=== PATIENT | male | born 1970 | race Caucasian/White ===

== ENCOUNTER 2018-10-25 11:23 | Inpatient (IN) | payer MEDICAID, OTHER ==
[2018-10-25] VITALS (13 sets, daily range): BP systolic 105–152
[~2018-10-25] VITALS: Ht 172.7 cm; Wt 85.7 kg
--- NOTE | 2018-10-25 11:25 | NUR ---
Patient to ER bed 2 to gown for evaluation. Side rails up. RESUMED CARE OF PATIENT.
--- NOTE | 2018-10-25 11:35 | NUR ---
PATIENT BIB AMBULANCE FOR LEFT SIDED CHEST PAIN x1.5 HOURS WHILE AT THE COURT HOUSE. PT A&Ox4. +DIZZINESS. CHEST PAIN PRESSURE LIKE AND SHARP. PAIN = 10/10. DR. HEBERT AT BEDSIDE AND AWARE. NEW ORDERS NOTED AND TO BE CARRIED OUT. PT STATES HAVING SHORTNESS OF BREATH AT ONSET OF CHEST PAIN. SPEAKING FULL SENTENCES AT THIS TIME. PT PLACED ON O2 VIA NC @ 2L/MIN. SIDE RAILS UP. WILL CONTINUE TO MONITOR.
--- NOTE | 2018-10-25 11:35 | NUR ---
MD ELLE HEBERT at bedside examining patient.
[2018-10-25 11:49] LABS: BASOPHILS # (AUTO) 0.1 K/uL (0.0-0.2); EOSINOPHILS # (AUTO) 0.2 K/uL (0.0-0.4); EOSINOPHILS % (AUTO) 2.6 % (0.0-4.0); HEMATOCRIT 44.7 % (36-54); HEMOGLOBIN 14.3 g/dL (14.0-18.0); LYMPHOCYTES # (AUTO) 0.9 K/uL (1.0-5.5); LYMPHOCYTES % (AUTO) 11.6 % (20.5-51.5); MEAN CORPUSCULAR HEMOGLOBIN 32 pg (27-31); MEAN CORPUSCULAR HGB CONC 32 % (32-36); MEAN CORPUSCULAR VOLUME 100 fL (79.0-98.0); MONOCYTES # (AUTO) 0.5 K/uL (0.0-1.0); MONOCYTES % (AUTO) 6.9 % (1.7-9.3); NEUTROPHILS # (AUTO) 5.9 K/uL (1.8-7.7); NEUTROPHILS % (AUTO) 77.9 % (40.0-70.0); PLATELET COUNT (AUTO) 218 K/uL (130-430); RED BLOOD CELL COUNT(AUTO) 4.48 MIL/uL (4.2-6.2); RED CELL DISTRIBUTION WIDTH 14.9 % (9.0-15.0); WHITE BLOOD COUNT (AUTO) 7.6 K/uL (4.8-10.8)
[2018-10-25] MEDS ORDERED: CALCIUM GLUCONATE 1 GM/10 ML VIAL IVP ONE (12:00)
[2018-10-25] MEDS ORDERED: ATROPINE SULFATE 1 MG/10 ML SYRINGE IVP ONE ×3 (12:00→13:15)
[2018-10-25 12:19] LABS: CALCIUM 8.8 mg/dL (8.4-11.0)
[2018-10-25 12:24] LABS: POTASSIUM 6.9 mmol/L (3.5-5.1)
[2018-10-25 12:26] LABS: ALBUMIN 3.5 g/dL (3.4-4.8); TOTAL BILIRUBIN 0.5 mg/dL (0.0-1.0)
[2018-10-25 12:27] LABS: CREATININE 19.78 mg/dL (0.55-1.30)
[2018-10-25] MEDS ORDERED: SODIUM BICARBONATE 8.4% JECT 50 MEQ/50 ML SYRINGE IVP ONE ×2 (12:30)
--- NOTE | 2018-10-25 13:22 | NUR ---
Orders received from Dr. Bautista, orders entered by RN. Called ICU for bed assignment.
[2018-10-25] MEDS ORDERED: MUPIROCIN 2% TOPICAL OINTMENT 22 GM NS PRN (13:30)
[2018-10-25] MEDS ORDERED: MAGNESIUM SULFATE 50 ML IV PRN (13:30)
[2018-10-25] MEDS ORDERED: ONDANSETRON HCL 4 MG/2 ML VIAL IVP PRN (13:30)
[2018-10-25] MEDS ORDERED: ACETAMINOPHEN 325 MG TABLET PO PRN (13:30)
[2018-10-25] MEDS ORDERED: POTASSIUM CHLORIDE 20 MEQ TAB.PRT.SR PO PRN (13:30)
[2018-10-25] MEDS ORDERED: DOCUSATE SODIUM 100 MG CAPSULE PO PRN (13:30)
[2018-10-25] MEDS ORDERED: LORazepam 2 MG/ML VIAL IVP PRN (13:30)
[2018-10-25] MEDS ORDERED: ZOLPIDEM TARTRATE 5 MG TABLET PO PRN (13:30)
[2018-10-25] MEDS ORDERED: MORPHINE 4 MG/ML INJ. SYRINGE IVP PRN ×2 (13:30)
--- NOTE | 2018-10-25 13:50 | NUR ---
IV access placed by EMS, attempted 2nd IV site, unable to obtain, will endorse.
--- NOTE | 2018-10-25 14:00 | NUR ---
Patient will be admitted to care of . Admitted to ICU unit. Will go to room ICU6. Belongings list completed. Summary report printed. Report will be given at bedside. KIMANI Melvin received bedside report.
--- NOTE | 2018-10-25 14:15 | NUR ---
Received pt from ER to ICU bed 6 via gurney. Pt alert and oriented. HR 35-42 upon arrival. Pt has a left arm AV shunt and an 18 IV to left hand from paramedics. Pt denies dizzyness. BP stable. 02 2L NC in use Sats 99%. Left upper arm with AV shunt with a good thrill and audible bruit. Lungs very diminished in bases. Pt denies SOB at this time. ABD soft with bowels sounds. No pedal edema. Socks on.Call soliz in place and will continue to monitor pt.
--- NOTE | 2018-10-25 14:35 | NUR ---
20g IV started to right AC. Flushes well without pain or swelling.
[2018-10-25 16:23] LABS: PROTHROMBIN TIME 9.9 SECS (9.5-12.5)
--- NOTE | 2018-10-25 16:25 | NUR ---
Pt c/o SOB. RR 28/min. Sats 97%. Dialysis nurse here. Spoke with Dr. Arita and informed him of HR 29 on occasion, but mostly 30s and the rest of the VS. Orders left. Addendum: 10/25/18 at 1655 by Jaquelin Cyr RN Pts monitor azael felder at times, 2nd degree.
--- NOTE | 2018-10-25 16:30 | NUR ---
Atropine 0.5 mg IVP given for HR 32. Dialysis just starting.
[2018-10-25] MEDS ORDERED: ATROPINE SULFATE 0.5 MG/5 ML SYRINGE IVP PRN (16:45)
[2018-10-25] MEDS ORDERED: SODIUM POLYSTYRENE SULFONATE 15 GM/60 ML UDBTL PO ONE (16:45)
--- NOTE | 2018-10-25 16:45 | NUR ---
Not much difference in HR after atropine given. Tolerating dialysis. "Pt ststes he feels better already, I can feel it already."
--- NOTE | 2018-10-25 17:50 | NUR ---
Monitor shows HR 70's and SR. Pt comfortable in bed and states he feels much better. Eating dinner and has a good appetite.
[2018-10-25] MEDS ORDERED: FOLI0.8T42 PO (18:38)
[2018-10-25] MEDS ORDERED: NEPH PO (18:38)
[2018-10-25] MEDS ORDERED: PROXL60 PO (18:38)
[2018-10-25] MEDS ORDERED: METO-442 PO (18:38)
[2018-10-25] MEDS ORDERED: NOR10 PO (18:38)
[2018-10-25] MEDS ORDERED: OMEP10SU2 PO (18:38)
[2018-10-25] MEDS ORDERED: ASA81 PO (18:38)
[2018-10-25] MEDS ORDERED: CAT.2 PO (18:38)
[2018-10-25] MEDS ORDERED: DEXL60CA4 PO (18:38)
--- NOTE | 2018-10-25 19:25 | NUR ---
PM SHIFT ASSESSMENT Pt is alert and oriented. SR noted on monitor. SPO2 via NC @ 2L, RR even and unlabored. Skin intact. Pt is anuric. Safety precautions in place, call light within reach. Will continue to monitor.
--- NOTE | 2018-10-25 19:30 | NUR ---
Dialysis completed and pt tolerated it well. HR SR rate 66. VSS.
--- NOTE | 2018-10-25 19:32 | NUR ---
Report given to oncoming shift.
--- NOTE | 2018-10-25 19:50 | NUR ---
CHG bath given. Pt tolerated care well.
[2018-10-25] MEDS: HEPARIN SODIUM,PORCINE 5000 UNITS/ML VIAL SUBCUT SCH (20:49)
[2018-10-26] VITALS (15 sets, daily range): BP systolic 126–172
[2018-10-26 06:42] LABS: CALCIUM 8.8 mg/dL (8.4-11.0); POTASSIUM 4.5 mmol/L (3.5-5.1)
[2018-10-26 06:52] LABS: CREATININE 15.04 mg/dL (0.55-1.30)
[2018-10-26 06:54] LABS: BASOPHILS % (AUTO) 0.3 % (0.0-2.0); EOSINOPHILS # (AUTO) 0.2 K/uL (0.0-0.4); EOSINOPHILS % (AUTO) 3.7 % (0.0-4.0); HEMATOCRIT 45.1 % (36-54); HEMOGLOBIN 14.7 g/dL (14.0-18.0); LYMPHOCYTES # (AUTO) 0.8 K/uL (1.0-5.5); LYMPHOCYTES % (AUTO) 11.9 % (20.5-51.5); MEAN CORPUSCULAR HEMOGLOBIN 32 pg (27-31); MEAN CORPUSCULAR HGB CONC 33 % (32-36); MEAN CORPUSCULAR VOLUME 99 fL (79.0-98.0); MONOCYTES # (AUTO) 0.4 K/uL (0.0-1.0); NEUTROPHILS % (AUTO) 77.1 % (40.0-70.0); PLATELET COUNT (AUTO) 175 K/uL (130-430); RED BLOOD CELL COUNT(AUTO) 4.55 MIL/uL (4.2-6.2); RED CELL DISTRIBUTION WIDTH 14.7 % (9.0-15.0); WHITE BLOOD COUNT (AUTO) 6.4 K/uL (4.8-10.8)
--- NOTE | 2018-10-26 07:20 | NUR ---
ENDORSEMENT Pt care endorsed to KIMANI Berman at bedside using nursing SBAR.
--- NOTE | 2018-10-26 07:21 | NUR ---
RN Opening Note SBAR report received from endorsing nurse at bedside. Pt educated on unit safety and demonstrated use of call light. Bed in lowest position. Call light within reach. See VS flowsheet.
[2018-10-26] MEDS: HEPARIN SODIUM,PORCINE 5000 UNITS/ML VIAL SUBCUT SCH ×2 (08:23→20:50)
--- NOTE | 2018-10-26 09:30 | NUR ---
DOWNGRADE TO TELEMETRY DR. JIMENEZ AT BEDSIDE. ORDER RECEIVED TO TRANSFER TO TELEMETRY. CONTINUING CARE IN ICU-6 UNTIL TELEMETRY NURSE BECOMES AVAILABLE
--- NOTE | 2018-10-26 10:36 | NUR ---
Nutrition Update Magen Scale 16 noted. Pt admitted for symptomatic bradycardiac. Diet: renal BMI: 27.7 kg/m2 RD to follow per nutrition care standards.
--- NOTE | 2018-10-26 10:40 | NUR ---
opening note patient is resting in bed, A&Ox4, assessment completed, educated administration dean light system and plan of care, patient verbalized understanding, no other needs at this time, patient refused bed alarm even after providing education on the benefits of it, bed at the lowest position, two side rails up, call light within reach, fall and aspiration precautions in place, limb alert band on.
[2018-10-26] MEDS: ASPIRIN 81 MG TAB.CHEW PO SCH (11:29)
[2018-10-26] MEDS: NEPHROVITE, (FOLIC ACID/VITAMIN B COMP W-C 1 TAB) PO SCH (11:30)
[2018-10-26] MEDS: cloNIDine HCL 0.1 MG TABLET PO SCH ×2 (11:30→20:48)
[2018-10-26] MEDS: amLODIPine BESYLATE 10 MG TABLET PO SCH (11:30)
--- NOTE | 2018-10-26 11:30 | NUR ---
Medication patient is resting in bed, medications were administered late because patient was transferred to unit after the scheduled time and orders and verification did not happen until after his transfer, educated on medication uses and side effects, patient verbalized understanding and tolerated well, no other needs at this time, patient refused bed alarm even after providing education on the benefits of it, bed at the lowest position, two side rails up, call light within reach, fall and aspiration precautions in place, limb alert band on.
--- NOTE | 2018-10-26 12:40 | NUR ---
rounds vital signs completed, blood pressure was 172/102, will continue to monitor, patient is resting in bed, no other needs at this time, patient refused bed alarm even after providing education on the benefits of it, bed at the lowest position, two side rails up, call light within reach, fall and aspiration precautions in place, limb alert band on.
--- NOTE | 2018-10-26 13:00 | NUR ---
BP follow up blood pressure was 134/72, will continue to monitor, patient is resting in bed, no other needs at this time, patient refused bed alarm even after providing education on the benefits of it, bed at the lowest position, two side rails up, call light within reach, fall and aspiration precautions in place, limb alert band on.
--- NOTE | 2018-10-26 14:30 | NUR ---
ROUNDS patient is resting in bed, eyes closed breathing nonlabored, no other needs at this time, patient refused bed alarm even after providing education on the benefits of it, bed at the lowest position, two side rails up, call light within reach, fall and aspiration precautions in place, limb alert band on.
--- NOTE | 2018-10-26 16:30 | NUR ---
rounds patient is resting in bed, talking on the phone, vital signs done, no other needs at this time, patient refused bed alarm even after providing education on the benefits of it, bed at the lowest position, two side rails up, call light within reach, fall and aspiration precautions in place, limb alert band on.
--- NOTE | 2018-10-26 18:40 | NUR ---
closing note walked with patient in [place], assisted back to bed, no other needs at this time, will endorse report to noc shift nurse, patient refused bed alarm, bed in lowest position, two side rails up, call light within reach, fall and aspiration precautions in place, limb alert band on.
--- NOTE | 2018-10-26 19:25 | NUR ---
OPENING NOTE Patient resting in the bed comfortable. No acute distress. Respiration even and unlabored. AAO x 4. Denied of pain. Skin warm and dry to touch. SL intact to RAC, no redness, no swelling, patent. AV shunt intact to SHRUTHI with thrill/bruit present. No bleeding, no swelling noted. Discussed the safety measure maintained. Bed locked in low position, side rails up. Call light within reached. Refused bed alarm, risk and benefit explained, verbally understanding. Will continue to monitor.
--- NOTE | 2018-10-26 21:35 | NUR ---
AMBULATED IN [address] IN STEADY GAIT.
--- NOTE | 2018-10-26 23:05 | NUR ---
ROUND Patient resting in the bed with eyes closed. No acute distress. Respiration even and unlabored. Safety measure maintained. Bed locked in low position, side rails up. Call light within reached. Continue to monitor.
--- NOTE | 2018-10-27 01:22 | NUR ---
ROUND Patient resting in the bed with eyes closed. No acute distress. Safety measure maintained. Bed locked in low position, side rails up. Call light within reached. Continue to monitor.
[2018-10-27 01:36] VITALS: BP_SYST 147
--- NOTE | 2018-10-27 03:00 | NUR ---
ROUND Patient resting in the bed with eyes closed. No acute distress. Skin warm and dry to touch. SL intact. Safety measure maintained. Bed locked in low position, side rails up. Call light within reached. Continue to monitor.
--- NOTE | 2018-10-27 04:50 | NUR ---
ROUND Patient resting in the bed with eyes closed. No acute distress. Respiration even and unlabored. Safety measure maintained. Call light within reached. Bed locked in low position, side rails up. Continue to monitor.
--- NOTE | 2018-10-27 06:55 | NUR ---
CLOSING NOTE Patient resting in the bed and watching TV. No acute distress. Respiration even and unlabored. Denied of pain. Skin warm and dry to touch. SL intact to RAC, no redness, no swelling, patent. AV shunt intact to SHRUTHI with thrill/bruit present. No bleeding, no swelling noted. All needs met. Hourly rounding during shift. Safety measure maintained. Bed locked in low position, side rails up. Call light within reached. Refused bed alarm, risk and benefit explained, verbally understanding. Will endorse to morning shift nurse.
[2018-10-27 07:43] LABS: BASOPHILS % (AUTO) 0.3 % (0.0-2.0); EOSINOPHILS # (AUTO) 0.2 K/uL (0.0-0.4); HEMATOCRIT 43.9 % (36-54); HEMOGLOBIN 14.1 g/dL (14.0-18.0); LYMPHOCYTES % (AUTO) 18.8 % (20.5-51.5); MEAN CORPUSCULAR HEMOGLOBIN 32 pg (27-31); MEAN CORPUSCULAR HGB CONC 32 % (32-36); MEAN CORPUSCULAR VOLUME 99 fL (79.0-98.0); MONOCYTES # (AUTO) 0.5 K/uL (0.0-1.0); MONOCYTES % (AUTO) 9.2 % (1.7-9.3); NEUTROPHILS # (AUTO) 3.7 K/uL (1.8-7.7); NEUTROPHILS % (AUTO) 67.7 % (40.0-70.0); PLATELET COUNT (AUTO) 162 K/uL (130-430); RED BLOOD CELL COUNT(AUTO) 4.46 MIL/uL (4.2-6.2); WHITE BLOOD COUNT (AUTO) 5.4 K/uL (4.8-10.8)
--- NOTE | 2018-10-27 08:00 | NUR ---
AM rounds patient resting in bed, a/ox4, denies pain, assessment complete, educated on plan of care, safety and call light system, he verbalized understanding, call light within reach, fall and aspiration precautions in place.
[2018-10-27] MEDS: cloNIDine HCL 0.1 MG TABLET PO SCH ×3 (08:08→21:04)
[2018-10-27] MEDS: ASPIRIN 81 MG TAB.CHEW PO SCH (08:08)
[2018-10-27] MEDS: NEPHROVITE, (FOLIC ACID/VITAMIN B COMP W-C 1 TAB) PO SCH (08:08)
[2018-10-27] MEDS: amLODIPine BESYLATE 10 MG TABLET PO SCH (08:09)
[2018-10-27] MEDS: HEPARIN SODIUM,PORCINE 5000 UNITS/ML VIAL SUBCUT SCH ×2 (08:10→21:06)
--- NOTE | 2018-10-27 08:10 | NUR ---
Medications patient resting in bed, awake, denies pain, educated on morning medications uses and potential side effects, he verbalized understanding and tolerated well, no other needs at this time, bed in lowest position, two side rails up, call light within reach, fall and aspiration precautions in place, continuing to monitor
[2018-10-27 08:12] VITALS: BP_SYST 176
[2018-10-27 08:12] LABS: CALCIUM 8.4 mg/dL (8.4-11.0); POTASSIUM 5.2 mmol/L (3.5-5.1)
[2018-10-27 08:20] LABS: CREATININE 17.81 mg/dL (0.55-1.30)
--- NOTE | 2018-10-27 08:20 | NUR ---
Hemodialysis nurse at the bedside at this time, patient is tolerating well.
[2018-10-27 09:16] VITALS: BP_SYST 176
[2018-10-27] MEDS: hydrALAZINE HCL 10 MG TABLET PO ONE ×2 (10:00→12:29)
--- NOTE | 2018-10-27 11:59 | NUR ---
Hemodialysis/BP med HD complete at this time, 3L off, patient BP improved will not administer one time dose of hydralazine, will re-check BP and administer 1400 dose if indicated, patient denies pain, in stable condition, continuing to monitor, no other needs at this time, bed in lowest position, two side rails up, call light within reach, fall and aspiration precautions in place. Addendum: 10/27/18 at [address] RN Administered one time dose for BP med per MD orders, current HR 71 BP 162/101, continuing to monitor.
[2018-10-27 12:14] VITALS: BP_SYST 162
--- NOTE | 2018-10-27 12:57 | NUR ---
Patient request to go to [facility] to see his grandson who is too young to visit inside the hospital, walked with the patient to the [facility] steady gait, will continue to monitor the patient. Addendum: 10/27/18 at [address] RN Patient back to unit, stable condition.
[2018-10-27] MEDS ORDERED: hydrALAZINE HCL 10 MG TABLET PO SCH (14:00)
--- NOTE | 2018-10-27 14:09 | NUR ---
RN Rounds patient ambulating on the unit, steady gait, stable condition, continuing to monitor.
--- NOTE | 2018-10-27 15:02 | NUR ---
Dietitian Recommendations * Recommend renal, 100 gm protein diet LP, RD Please refer to Nutrition Assessment for details.
[2018-10-27 15:32] VITALS: BP_SYST 128
[2018-10-27] MEDS: hydrALAZINE HCL 10 MG TABLET PO SCH ×2 (15:51→22:47)
--- NOTE | 2018-10-27 15:55 | NUR ---
RN rounds/BP meds patient resting in bed, awake, denies pain, educated on medications, uses and potential side effects, HR 81 BP 157/110 at this time, patient tolerated well, provided with linen pants per request, no other needs at this time, bed in lowest position, two side rails up, call light within reach, fall and aspiration precautions in place.
--- NOTE | 2018-10-27 17:30 | NUR ---
RN rounds patient out of bed, ambulating around his room and in the hallway, steady gait, in stable condition, continuing to monitor.
--- NOTE | 2018-10-27 18:53 | NUR ---
Dr. Carter rounds assessed patient at bedside, will follow up with any new orders. Addendum: 10/27/18 at [address] RN WRONG PATIENT *
--- NOTE | 2018-10-27 18:53 | NUR ---
Closing note patient resting in bed, awake, denies pain, stable condition, all needs met, will endorse report to NOC shift nurse, bed in lowest position, two side rails up, call light within reach, fall and aspiration precautions in place.
--- NOTE | 2018-10-27 19:15 | NUR ---
OPENING NOTES RECEIVED PATIENT IN BED AAO X4. DENIES ANY PAIN. BREATHING UNLABORED ON ROOM AIR. PLAN OF CARE REVIEWED WITH PATIENT. CALL LIGHT WITHIN REACH. BED IN LOWEST LOCKED POSITION.
[2018-10-27 20:50] VITALS: BP_SYST 149
--- NOTE | 2018-10-27 21:06 | NUR ---
MED PASS DUE MEDICATIONS GIVEN AND TOLERATED. DENIES PAIN/DISCOMFORT AT THIS TIME. HS SNACK PROVIDED.
--- NOTE | 2018-10-27 22:47 | NUR ---
BP MED DUE BLOOD PRESSURE MEDICATION GIVEN. VITAL SIGNS STABLE. CALL LIGHT WITH IN REACH.
[2018-10-28] VITALS: BP_SYST 125
--- NOTE | 2018-10-28 01:45 | NUR ---
ROUNDS PATIENT RESTING IN BED. BREATHING UNLABORED ON ROOM AIR. CALL LIGHT WITHIN REACH.
--- NOTE | 2018-10-28 03:45 | NUR ---
ROUNDS PATIENT RESTING IN BED. NO DISTRESS NOTED. CALL LIGHT WITHIN REACH.
[2018-10-28] MEDS: hydrALAZINE HCL 10 MG TABLET PO SCH ×2 (06:01→13:08)
--- NOTE | 2018-10-28 06:01 | NUR ---
BP MEDS DUE BP MEDICATION GIVEN. VITAL SIGNS STABLE. DENIES PAIN. NO DISTRESS NOTED.
--- NOTE | 2018-10-28 07:01 | NUR ---
CLOSING NOTES PATIENT RESTING IN BED. BREATHING UNLABORED. NO CHANGE OF CONDITION DURING SHIFT. NEEDS ATTENDED. CALL LIGHT WITH IN REACH. SIDE RAILS UP X2. BED IN LOWEST LOCKED POSITION.
[2018-10-28 07:16] LABS: BASOPHILS % (AUTO) 0.5 % (0.0-2.0); EOSINOPHILS # (AUTO) 0.2 K/uL (0.0-0.4); EOSINOPHILS % (AUTO) 3.4 % (0.0-4.0); HEMATOCRIT 47.4 % (36-54); LYMPHOCYTES % (AUTO) 19.3 % (20.5-51.5); MEAN CORPUSCULAR HEMOGLOBIN 33 pg (27-31); MEAN CORPUSCULAR HGB CONC 34 % (32-36); MEAN CORPUSCULAR VOLUME 98 fL (79.0-98.0); MONOCYTES # (AUTO) 0.4 K/uL (0.0-1.0); MONOCYTES % (AUTO) 8.3 % (1.7-9.3); NEUTROPHILS # (AUTO) 3.7 K/uL (1.8-7.7); NEUTROPHILS % (AUTO) 68.5 % (40.0-70.0); PLATELET COUNT (AUTO) 181 K/uL (130-430); RED BLOOD CELL COUNT(AUTO) 4.83 MIL/uL (4.2-6.2); RED CELL DISTRIBUTION WIDTH 14.6 % (9.0-15.0); WHITE BLOOD COUNT (AUTO) 5.3 K/uL (4.8-10.8)
[2018-10-28 07:26] LABS: CALCIUM 8.6 mg/dL (8.4-11.0); POTASSIUM 5.1 mmol/L (3.5-5.1)
[2018-10-28 07:29] LABS: CREATININE 15.49 mg/dL (0.55-1.30)
--- NOTE | 2018-10-28 07:30 | NUR ---
opening note patient is resting in bed, A&Ox4, assessment completed, educated telecommunications administrator light system and plan of care, patient verbalized understanding, no other needs at this time, patient refused bed alarm even after providing education on the benefits of it, bed at the lowest position, two side rails up, call light within reach, fall and aspiration precautions in place, limb alert band on.
[2018-10-28 08:05] VITALS: BP_SYST 140
[2018-10-28] MEDS: NEPHROVITE, (FOLIC ACID/VITAMIN B COMP W-C 1 TAB) PO SCH (08:08)
[2018-10-28] MEDS: ASPIRIN 81 MG TAB.CHEW PO SCH (08:08)
--- NOTE | 2018-10-28 08:08 | NUR ---
Medication patient is resting in bed, patient denies any pain, patient is eating breakfast, educated on medication uses and side effects, patient verbalized understanding and tolerated well, no other needs at this time, patient refused bed alarm even after providing education on the benefits of it, bed at the lowest position, two side rails up, call light within reach, fall and aspiration precautions in place, limb alert band on.
[2018-10-28] MEDS: cloNIDine HCL 0.1 MG TABLET PO SCH ×2 (08:09→14:48)
[2018-10-28] MEDS: amLODIPine BESYLATE 10 MG TABLET PO SCH (08:09)
[2018-10-28] MEDS: HEPARIN SODIUM,PORCINE 5000 UNITS/ML VIAL SUBCUT SCH (08:11)
--- NOTE | 2018-10-28 10:35 | NUR ---
rounds patient is resting in bed, informed about discharge orders from MD, patient verbalized understanding and ride will be here around 1400, no other needs at this time, bed alarm refused by patient, two side rails up, call light within reach, fall and aspiration precautions in place.
[2018-10-28 12:13] VITALS: BP_SYST 105
--- NOTE | 2018-10-28 13:10 | NUR ---
Medication patient is resting in bed, informed me that his will be the room picking him up, educated on medication uses and side effects, patient verbalized understanding and tolerated well, no other needs at this time, patient refused bed alarm even after providing education on the benefits of it, bed at the lowest position, two side rails up, call light within reach, fall and aspiration precautions in place, limb alert band on.
[2018-10-28 13:28] VITALS: BP_SYST 144
--- NOTE | 2018-10-28 14:49 | NUR ---
Medication patient is resting in bed, present at the bedside, educated on medication uses and side effects, patient verbalized understanding and tolerated well, no other needs at this time, patient refused bed alarm even after providing education on the benefits of it, bed at the lowest position, two side rails up, call light within reach, fall and aspiration precautions in place, limb alert band on.
--- NOTE | 2018-10-28 15:15 | NUR ---
D/C Patient Patient given medication reconciliation form and D/C instructions. Exit Care provided. Patient verbalized understanding. MD discussed with patient the results and treatment provided. Ambulatory with steady gait for discharge to home. Patient in stable condition, ID band removed. IV catheter removed, intact and dressing applied, no active bleeding. Patient educated on pain management. All belongings sent with patient. Patient is scheduled to met with PCP on thursday10/30/18 for dialysis treatment.
== END 2018-10-28 13:15 | disposition home or self-care (01) | DRG 291 ==
LOC: SED 11:23 → SIC 13:13 → STU 10-26 10:55
PROVIDERS: ADMIT General Practice; ATTEND General Practice
PROC: 5A1D70Z Performance of Urinary Filtration, Intermittent, Less than 6 Hours Per Day (ICD-10-PCS; principal; 2018-10-25)
PROC: 5A1D70Z Performance of Urinary Filtration, Intermittent, Less than 6 Hours Per Day (ICD-10-PCS; 2018-10-27)
DX: I13.2 Hypertensive heart and chronic kidney disease with heart failure and with stage 5 chronic kidney disease, or end stage renal disease (principal); N17.0 Acute kidney failure with tubular necrosis; N18.6 End stage renal disease; E87.1 Hypo-osmolality and hyponatremia; E87.5 Hyperkalemia; R00.1 Bradycardia, unspecified; E11.22 Type 2 diabetes mellitus with diabetic chronic kidney disease; R07.9 Chest pain, unspecified; F12.90 Cannabis use, unspecified, uncomplicated; I50.9 Heart failure, unspecified; Z99.2 Dependence on renal dialysis; Z86.73 Personal history of transient ischemic attack (TIA), and cerebral infarction without residual deficits; Z87.891 Personal history of nicotine dependence; Z91.15 Patient's noncompliance with renal dialysis; Z91.14 Patient's other noncompliance with medication regimen
CPT/HCPCS: 36415; 71045; 80048; 80053; 83036; 83735-TC; 83880; 84484; 85025; 85610-TC; 85730-TC; 87081; 90935; 90937; 93005; 96374; 96375; 96376; 99285; G0378; J0461; J0610; J1644; J7030